=== PATIENT | male | born 1970 | race Hispanic/Latino ===

== ENCOUNTER 2023-07-13 10:00 | Emergency (ER) | payer SELFPAY ==
--- NOTE | 2023-07-13 11:09 | RAD REPORT ---
EXAM DESCRIPTION: RAD - Hand Left 3 View - 07/13/2023 10:51 am CLINICAL HISTORY: Pain;Swelling COMPARISON: No comparisons FINDINGS/IMPRESSION: Obliquely oriented fracture of the second metacarpal involving the proximal to mid diaphysis. There is less than 1/3 shaft width maximal displacement.No other fractures.
--- NOTE | 2023-07-13 11:16 | EDPHYS ---
Physician Documentation [facility] Name: Garry Skelton Age: 52 yrs Sex: Male : 1970 Arrival Date: 07/13/2023 Time: 10:00 Bed 12 Private MD: HALIE Physician Fredis Marcano HPI: 07/13 11:10 This 52 yrs old Male presents to ER via Ambulatory with complaints of Hand flavio Injury. 11:10 The patient or guardian reports decreased range of motion, deformity, injury, pain. The flavio complaints affect the left hand diffusely. Context: The problem was sustained outdoors, resulted from a fall. Onset: The symptoms/episode began/occurred yesterday. Modifying factors: The symptoms are alleviated by nothing, elevation, the symptoms are aggravated by movement, dependent position. Associated signs and symptoms: The patient has no apparent associated signs or symptoms. Severity of symptoms: At their worst the symptoms were mild, moderate, in the emergency department the symptoms are unchanged. The patient has not experienced similar symptoms in the past. Historical: - Allergies: 10:24 No Known Allergies; ap3 - Home Meds: 10:24 None [Active]; ap3 - PMHx: 10:24 None; ap3 - Immunization history:: Client reports having NOT received the Covid vaccine. Last tetanus immunization: not immunized. - Social history:: Smoking status: Reported history of juuling and/or vaping. Patient uses alcohol, on a daily basis. claims drinking about a 6 pack/day. - Family history:: not pertinent. ROS: 11:10 Constitutional: Negative for fever, chills, and weight loss, Eyes: Negative for injury, flavio pain, redness, and discharge, ENT: Negative for injury, pain, and discharge, Neck: Negative for injury, pain, and swelling, Cardiovascular: Negative for chest pain, palpitations, and edema, Respiratory: Negative for shortness of breath, cough, wheezing, and pleuritic chest pain, Abdomen/GI: Negative for abdominal pain, nausea, vomiting, diarrhea, and constipation, Back: Negative for injury and pain, : Negative for injury, bleeding, discharge, and swelling, Skin: Negative for injury, rash, and discoloration, Neuro: Negative for headache, weakness, numbness, tingling, and seizure, Psych: Negative for depression, anxiety, suicide ideation, homicidal ideation, and hallucinations, Allergy/Immunology: Negative for hives, rash, and allergies, Endocrine: Negative for neck swelling, polydipsia, polyuria, polyphagia, and marked weight changes. 11:10 MS/extremity: Positive for injury or acute deformity, contusion, decreased range of motion, swelling, of the left hand. Exam: 11:10 Constitutional: This is a well developed, well nourished patient who is awake, alert, flavio and in no acute distress. Head/Face: Normocephalic, atraumatic. Eyes: Pupils equal round and reactive to light, extra-ocular motions intact. Lids and lashes normal. Conjunctiva and sclera are non-icteric and not injected. Cornea within normal limits. Periorbital areas with no swelling, redness, or edema. ENT: Nares patent. No nasal discharge, no septal abnormalities noted. Tympanic membranes are normal and external auditory canals are clear. Oropharynx with no redness, swelling, or masses, exudates, or evidence of obstruction, uvula midline. Mucous membranes moist. Neck: Trachea midline, no thyromegaly or masses palpated, and no cervical lymphadenopathy. Supple, full range of motion without nuchal rigidity, or vertebral point tenderness. No Meningismus. Chest/axilla: Normal chest wall appearance and motion. Nontender with no deformity. No lesions are appreciated. Cardiovascular: Regular rate and rhythm with a normal S1 and S2. No gallops, murmurs, or rubs. Normal PMI, no JVD. No pulse deficits. Respiratory: Lungs have equal breath sounds bilaterally, clear to auscultation and percussion. No rales, rhonchi or wheezes noted. No increased work of breathing, no retractions or nasal flaring. Abdomen/GI: Soft, non-tender, with normal bowel sounds. No distension or tympany. No guarding or rebound. No evidence of tenderness throughout. Back: No spinal tenderness. No costovertebral tenderness. Full range of motion. Male : Normal genitalia with no discharge or lesions. Skin: Warm, dry with normal turgor. Normal color with no rashes, no lesions, and no evidence of cellulitis. Neuro: Awake and alert, GCS 15, oriented to person, place, time, and situation. Cranial nerves II-XII grossly intact. Motor strength 5/5 in all extremities. Sensory grossly intact. Cerebellar exam normal. Normal gait. Psych: Awake, alert, with orientation to person, place and time. Behavior, mood, and affect are within normal limits. 11:10 Musculoskeletal/extremity: Extremities: grossly normal except: noted in the lateral aspect of left hand, dorsum of left hand, palm of left hand and Left first web space: decreased ROM, pain. Vital Signs: 10:23 BP 175 / 110; Pulse 79; Resp 16; Temp 98.8; Pulse Ox 100% ; Weight 52.16 kg; Pain 6/10; ap3 11:26 BP 179 / 118; nj1 12:15 BP 162 / 108; Pulse 71; Resp 18; Pulse Ox 98% ; Pain 6/10; nj1 10:23 Pain Scale: Adult ap3 12:15 Pain Scale: Adult nj1 MDM: 10:20 Patient medically screened. [facility] 11:12 Differential diagnosis: dislocation, closed fracture, contusion, abrasion, tendonitis. [facility] Data reviewed: vital signs, nurses notes, radiologic studies, plain films. Consideration of Admission/Observation Escalation of care including admission/observation considered. I considered the following discharge prescriptions or medication management in the emergency department Medications were administered in the Emergency Department. See MAR. Independent interpretation of the following test(s) in the Emergency Department X-Ray: My interpretation is fx 2nd mc. Test considered but Not performed: Labs: no labs. Historians other than the Patient: none. Care significantly affected by the following chronic conditions: none. 07/13 10:32 Order name: Hand Left 3 View XRAY [facility] 07/13 11:06 Order name: Misc. Order: splint left hand; Complete Time: 11:24 [facility] Administered Medications: 11:15 Drug: Ibuprofen PO 400 mg Route: PO; nj1 12:22 Follow up: Response: No adverse reaction nj1 11:15 Drug: Hydrocodone-Acetaminophen PO (7.5 mg-325 mg) 1 tabs Route: PO; nj1 12:22 Follow up: Response: No adverse reaction; Pain is decreased nj1 11:40 Drug: Norvasc PO 10 mg Route: PO; nj1 12:22 Follow up: Response: No adverse reaction nj1 11:40 Drug: Lisinopril PO 10 mg Route: PO; nj1 12:22 Follow up: Response: No adverse reaction nj1 Disposition Summary: 07/13/23 11:15 Discharge Ordered Location: Home flavio Problem: new flavio Symptoms: have improved flavio Condition: Stable flavio Diagnosis - Displaced fracture of base of second metacarpal bone, left hand, initial encounter flavio for closed fracture - Fall on same level, unspecified flavio - Essential (primary) hypertension flavio Followup: flavio - With: Private Physician - When: 2 - 3 days - Reason: Recheck today's complaints, Continuance of care, Re-evaluation by your physician Followup: flavio - With: Aram Cooper MD - When: 2 - 3 days - Reason: Recheck today's complaints, Re-evaluation by your physician Discharge Instructions: - Discharge Summary Sheet flavio - Metacarpal Fracture flavio - Hypertension, Adult flavio - Hypertension, Adult, [id number] flavio - Metacarpal Fracture, [id number] flavio - How to Take Your Blood Pressure, [id number] flavio - Managing Your Hypertension flavio Forms: - Medication Reconciliation Form flavio - Thank You Letter flavio - Antibiotic Education flavio - Prescription Opioid Use flavio - Patient Portal Instructions [facility] - Leadership Thank You Letter [facility] Prescriptions: - acetaminophen-codeine 300-30 mg Oral tablet - take 2 tablet by ORAL route 4 times per day; 20 tablet; Refills: 0, Product flavio Selection Permitted - Lotrel 5-20 mg Oral capsule - take 1 capsule by ORAL route once; 30 capsule; Refills: 0, Product Selection flavio Permitted - Motrin IB 200 mg Oral Tablet - take 1 tablet by ORAL route every 6 hours As needed as needed with food; 40 flavio tablet; Refills: 0, Product Selection Permitted Signatures: Dispatcher [employer] Fredis Soriano MD MD cha Prokisch, Amanda RN RN ap3 Ludy Deleon RN RN nj1
--- NOTE | 2023-07-13 11:16 | ER ---
Nurse's Notes [facility] Name: Garry Skelton Age: 52 yrs Sex: Male : 1970 Arrival Date: 07/13/2023 Time: 10:00 Bed 12 Private MD: Diagnosis: Displaced fracture of base of second metacarpal bone, left hand, initial encounter for closed fracture;Fall on same level, unspecified;Essential (primary) hypertension Presentation: 07/13 10:23 Chief complaint: Patient states: he fell Wednesday when he was walking his dog injuring ap3 his left hand. Coronavirus screen: At this time, the client does not indicate any symptoms associated with coronavirus-19. Ebola Screen: No symptoms or risks identified at this time. Initial Sepsis Screen: Does the patient meet any 2 criteria? No. Patient's initial sepsis screen is negative. Does the patient have a suspected source of infection? No. Patient's initial sepsis screen is negative. Risk Assessment: Do you want to hurt yourself or someone else? Patient reports no desire to harm self or others. Onset of symptoms was July 11, 2023. 10:23 Method Of Arrival: Ambulatory ap3 10:23 Acuity: MYRIAM 3 ap3 Triage Assessment: 10:24 General: Appears in no apparent distress. Behavior is calm, cooperative, appropriate ap3 for age. Pain: Complains of pain in left hand Pain currently is 6 out of 10 on a pain scale. Neuro: Level of Consciousness is awake, alert, obeys commands, Oriented to person, place, time, situation. Cardiovascular: Patient's skin is warm and dry. Respiratory: Airway is patent Respiratory effort is even, unlabored, Respiratory pattern is regular, symmetrical. Musculoskeletal: Injury Description: fall onto left hand. Historical: - Allergies: 10:24 No Known Allergies; ap3 - Home Meds: 10:24 None [Active]; ap3 - PMHx: 10:24 None; ap3 - Immunization history:: Client reports having NOT received the Covid vaccine. Last tetanus immunization: not immunized. - Social history:: Smoking status: Reported history of juuling and/or vaping. Patient uses alcohol, on a daily basis. claims drinking about a 6 pack/day. - Family history:: not pertinent. Screenin:25 [facility] ED Fall Risk Assessment (Adult) History of falling in the last 3 months, ap3 including since admission Yes- single mechanical fall (1 pt) Confusion or Disorientation No (0 pts) Intoxicated or Sedated No (0 pts) Impaired Gait No (0 pts) Mobility Assist Device Used No (0 pt) Altered Elimination No (0 pt). Abuse screen: Denies threats or abuse. Nutritional screening: No deficits noted. Tuberculosis screening: No symptoms or risk factors identified. Assessment: 10:33 Reassessment: See triage assessment. nj1 11:30 Reassessment: Patient appears in no apparent distress at this time. Patient and/or nj1 family updated on plan of care and expected duration. Pain level reassessed. Patient is alert, oriented x 3, equal unlabored respirations, skin warm/dry/pink. 12:10 Reassessment: Patient appears in no apparent distress at this time. Patient and/or nj1 family updated on plan of care and expected duration. Pain level reassessed. Patient is alert, oriented x 3, equal unlabored respirations, skin warm/dry/pink. Ok to go ahead with discharge per Dr Marcano's instructions. Vital Signs: 10:23 BP 175 / 110; Pulse 79; Resp 16; Temp 98.8; Pulse Ox 100% ; Weight 52.16 kg; Pain 6/10; ap3 11:26 BP 179 / 118; nj1 12:15 BP 162 / 108; Pulse 71; Resp 18; Pulse Ox 98% ; Pain 6/10; nj1 10:23 Pain Scale: Adult ap3 12:15 Pain Scale: Adult nm1 ED Course: 10:03 Patient arrived in ED. im 10:18 Ludy Deleon, LEONARD is Primary Nurse. nj1 10:20 Fredis Marcano MD is Attending Physician. flavio 10:24 Triage completed. ap3 10:25 Arm band placed on right wrist. ap3 10:26 Patient has correct armband on for positive identification. Bed in low position. Call ap3 light in reach. Side rails up X 1. Adult w/ patient. Pulse ox on. NIBP on. 10:53 Hand Left 3 View XRAY In Process Unspecified. EDMS 11:16 Aram Cooper MD is Referral Physician. flavio 11:29 Notified ED physician of vital signs. nj1 11:44 Provided Education on: Hypertension. Medication compliance.. nj1 11:44 No provider procedures requiring assistance completed. Patient did not have IV access nj1 during this emergency room visit. Administered Medications: 11:15 Drug: Ibuprofen PO 400 mg Route: PO; nj1 12:22 Follow up: Response: No adverse reaction nj1 11:15 Drug: Hydrocodone-Acetaminophen PO (7.5 mg-325 mg) 1 tabs Route: PO; nj1 12:22 Follow up: Response: No adverse reaction; Pain is decreased nj1 11:40 Drug: Norvasc PO 10 mg Route: PO; nj1 12:22 Follow up: Response: No adverse reaction nj1 11:40 Drug: Lisinopril PO 10 mg Route: PO; nj1 12:22 Follow up: Response: No adverse reaction nj1 Medication: 11:44 VIS not applicable for this client. nj1 Outcome: 11:15 Discharge ordered by . flavio 12:10 Discharged to home ambulatory. nj1 12:10 Condition: stable 12:10 Discharge instructions given to patient, Instructed on discharge instructions, follow up and referral plans. medication usage, safety practices, Demonstrated understanding of instructions, follow-up care, medications, splint care, Prescriptions given X 3. 12:26 Patient left the ED. nj1 Signatures: Dispatcher [employer] EDMS Fredis Marcano MD MD cha Prokisch, Amanda RN RN ap3 Ludy Deleon RN RN nj1 Claudette Kendrick Corrections: (The following items were deleted from the chart) 12:26 12:10 Reassessment: Patient appears in no apparent distress at this time. Patient nj1 and/or family updated on plan of care and expected duration. Pain level reassessed. Patient is alert, oriented x 3, equal unlabored respirations, skin warm/dry/pink. nj1
[2023-07-13] MEDS ORDERED: HYDROCODONE/APAP 7.5/325 MG TAB ONE (11:24)
[2023-07-13] MEDS ORDERED: IBUPROFEN 400 MG TAB ONE (11:24)
[2023-07-13] MEDS ORDERED: lisinopriL 10 MG TAB ONE (11:47)
[2023-07-13] MEDS ORDERED: AMLODIPINE 10 MG TAB ONE (11:47)
[2023-07-13 12:53] VITALS: TEMP 98.8
[2023-07-13 12:57] VITALS: BP 162/108; O2SAT 98
== END 2023-07-13 12:26 | disposition home or self-care (01) ==
LOC: ER 10:00
DX: S62.311A Displaced fracture of base of second metacarpal bone, left hand, initial encounter for closed fracture (principal); W18.30XA Fall on same level, unspecified, initial encounter; I10 Essential (primary) hypertension
CPT/HCPCS: 99284